=== PATIENT | male | born 1990 | race Two or more races ===

== ENCOUNTER 2019-07-04 11:51 | Emergency (ER) | payer OTHER ==
[~2019-07-04] VITALS: Ht 167.6 cm; Wt 77.7 kg
[2019-07-04 11:53] VITALS: BP 124/91
[2019-07-04] MEDS ORDERED: SILVER SULF. CRM 1% , 25GM ONE (12:08)
[2019-07-04] MEDS ORDERED: HYDROmorphone 1 MG/ML, 1ML INJ ONE (12:08)
[2019-07-04] MEDS ORDERED: ONDANSETRON ODT 4 MG ONE (12:08)
--- NOTE | 2019-07-04 12:25 | NUR ---
PT MEDICATED PER ERP ORDER. PULSE OX AND BP CUFF IN PLACE. AT BS. DELMI APPLIED BY THIS RN AND . DRESSING PLACED TO L ANKLE. CALL LIGHT WITHIN REACH.
[2019-07-04] MEDS ORDERED: SILVER SULF. CRM 1% , 25GM TP ONE (12:30)
[2019-07-04] MEDS ORDERED: ONDANSETRON ODT 4 MG PO ONE (12:30)
[2019-07-04] MEDS ORDERED: HYDROmorphone 1 MG/ML, 1ML INJ IM ONE (12:30)
--- NOTE | 2019-07-04 13:17 | NUR ---
PT STATES PAIN IS BETTER. VSS/PT FOR RECHECK.
--- NOTE | 2019-07-04 13:45 | NUR ---
REPORT GIVEN TO HIGINIO CALLE, TRANSFER OF CARE AT THIS TIME.
== END 2019-07-04 14:08 | disposition home or self-care (01) ==
LOC: ED 13:05
DX: T24.212A Burn of second degree of left thigh, initial encounter (principal); T21.26XA Burn of second degree of male genital region, initial encounter; T25.212A Burn of second degree of left ankle, initial encounter; T31.0 Burns involving less than 10% of body surface; X08.8XXA Exposure to other specified smoke, fire and flames, initial encounter; Y93.89 Activity, other specified; Y92.098 Other place in other non-institutional residence as the place of occurrence of the external cause; Y99.8 Other external cause status
CPT/HCPCS: 16020; 96372; 99283; J1170; Q0162; 16000